=== PATIENT | male | born 1945 | race Caucasian/White ===

== ENCOUNTER 2022-05-11 12:34 | Emergency (ER) | payer MEDICARE ==
[~2022-05-11] VITALS: Ht 187.9 cm; Wt 104.0 kg
[2022-05-11] MEDS ORDERED: ACETAMINOPHEN 325 MG TABLET PO ONE (13:00)
[2022-05-11 13:02] LABS: BASOPHILS # (AUTO) 0.1 10^3/uL (0.0-0.1); BASOPHILS % (AUTO) 1 % (0-10); EOSINOPHILS # (AUTO) 0.1 10^3/uL (0.0-0.3); EOSINOPHILS % (AUTO) 1 % (0-10); HEMATOCRIT 42 % (40-54); HEMOGLOBIN 15.4 g/dL (13.3-17.7); LYMPHOCYTES # (AUTO) 0.6 10^3/uL (1.0-4.0); LYMPHOCYTES % (AUTO) 13 % (12-44); MEAN CORPUSCULAR HEMOGLOBIN 32 pg (25-34); MEAN CORPUSCULAR HGB CONC 36 g/dL (32-36); MEAN CORPUSCULAR VOLUME 87 fL (80-99); MEAN PLATELET VOLUME 9.3 fL (9.0-12.2); MONOCYTES # (AUTO) 0.7 10^3/uL (0.0-1.0); MONOCYTES % (AUTO) 15 % (0-12); NEUTROPHILS # (AUTO) 3.3 10^3/uL (1.8-7.8); NEUTROPHILS % (AUTO) 70 % (42-75); PLATELET COUNT 185 10^3/uL (130-400); WHITE BLOOD COUNT 4.7 10^3/uL (4.3-11.0)
[2022-05-11 13:31] LABS: BILIRUBIN,URINE NEGATIVE (NEGATIVE); CLARITY,URINE SL CLOUDY; COLOR,URINE YELLOW; GLUCOSE, URINE (UA) NEGATIVE (NEGATIVE); KETONES,URINE NEGATIVE (NEGATIVE); LEUKOCYTE ESTERASE ,URINE NEGATIVE (NEGATIVE); NITRITE,URINE NEGATIVE (NEGATIVE); PROTEIN,URINE NEGATIVE (NEGATIVE)
[2022-05-11 13:35] LABS: CARBON DIOXIDE 21 MMOL/L (21-32); CHLORIDE 102 MMOL/L (98-107); POTASSIUM 3.5 MMOL/L (3.6-5.0); SODIUM 139 MMOL/L (135-145)
[2022-05-11 13:36] LABS: ALANINE AMINOTRANSFERASE 37 U/L (0-55); ALBUMIN 4.7 GM/DL (3.2-4.5); ALKALINE PHOSPHATASE 82 U/L (40-136); BILIRUBIN,TOTAL 0.5 MG/DL (0.1-1.0); BUN/CREATININE RATIO 9; CALCIUM 9.4 MG/DL (8.5-10.1); CREATININE SERUM 1.62 MG/DL (0.60-1.30); GFR ESTIMATED 44; GLUCOSE 110 MG/DL (70-105); TOTAL PROTEIN 7.6 GM/DL (6.4-8.2)
[2022-05-11 13:44] LABS: BACTERIA,URINE NEGATIVE /HPF; SQUAMOUS EPITHELIAL CELL,UR RARE /HPF; WBC,URINE 0-2 /HPF
[2022-05-11] MEDS ORDERED: AZIT250T PO (14:28)
[2022-05-11] MEDS ORDERED: RT-ALBUINH INH (14:28)
[2022-05-11] MEDS ORDERED: PRD20T PO (14:28)
[2022-05-11 14:29] VITALS: BP 185/86
--- NOTE | 2022-05-11 14:29 | ED Cough/URI ---
General Chief Complaint: COVID19 Suspect/Confirmed Stated Complaint: GEN WEAKNESS/PAIN Nursing Triage Note: Patient presents to the ED with c/o body aches and cough. Reports symptoms started yesterday evening. Source: patient Exam Limitations: no limitations History of Present Illness Date Seen by Provider: May 11, 2022 Time Seen by Provider: 13:00 Initial Comments Patient is a 76-year-old male who presents with cough congestion, body aches chills and sweats starting yesterday evening. Known COVID exposure. Denies chest pain, shortness of breath or palpitations. No medications or therapies taken prior to ED arrival. No other symptoms or complaints. Timing/Duration: just prior to arrival, yesterday Severity/Quality: other Prior Episodes/Possible Cause: other Modifying Factors: Improves With Other Associated Symptoms: other Allergies and Home Medications Allergies Coded Allergies: morphine (Verified Allergy, Unknown, 05/11/22) Patient Home Medication List Home Medication List Reviewed: Yes Review of Systems Review of Systems Constitutional: see HPI EENTM: see HPI Respiratory: see HPI Cardiovascular: see HPI Gastrointestinal: see HPI Genitourinary: see HPI Musculoskeletal: see HPI Skin: see HPI Psychiatric/Neurological: See HPI Hematologic/Lymphatic: See HPI Immunological/Allergic: see HPI All Other Systems Reviewed Negative Unless Noted: Yes Past Oeyemns-Qzfsyp-Taesoc Hx Patient Social History Tobacco Use?: No Substance use?: No Alcohol Use?: No Pt feels they are or have been: No Immunizations Up To Date First/Initial COVID19 Vaccinat: YES Second COVID19 Vaccination Allan: YES COVID19 Vaccine Election Assistant: Moderna Past Medical History Surgery/Hospitalization HX: HTN; High Cholesterol; [place] x2; Cardiac stents Physical Exam Vital Signs - First Documented 05/11/22 12:38 Temp 38.6 Pulse 87 Resp 16 B/P (MAP) 190/92 (124) Pulse Ox 95 O2 Delivery Room Air Capillary Refill : Less Than 3 Seconds Height: '" Weight: lbs. oz. kg; 29.00 BMI Method: General Appearance: no apparent distress Eyes: Bilateral Eye Normal Inspection, Bilateral Eye PERRL, Bilateral Eye EOMI HEENT: PERRL/EOMI, normal ENT inspection, pharynx normal Respiratory: decreased breath sounds Cardiovascular: regular rate, rhythm, no edema Gastrointestinal: non tender, soft Extremities: non-tender Neurologic/Psychiatric: alert, normal mood/affect, oriented x 3 Skin: normal color Focused Exam Sepsis Stage: Ruled Out Progress/Results/Core Measures Suspected Sepsis SIRS Temperature: Pulse: 87 Respiratory Rate: 16 Laboratory Tests 05/11/22 12:43: White Blood Count 4.7 Blood Pressure 190 /92 Mean: 124 Laboratory Tests 05/11/22 12:43: Creatinine 1.62H, Platelet Count 185, Total Bilirubin 0.5 Results/Orders Lab Results Laboratory Tests Test 05/11/22 12:38 05/11/22 12:43 05/11/22 12:44 Range/Units Urine Color YELLOW Urine Clarity SL CLOUDY Urine pH 6.0 5-9 Urine Specific [place] 1.025 H 1.016-1.022 Urine Protein NEGATIVE NEGATIVE Urine Glucose (UA) NEGATIVE NEGATIVE Urine Ketones NEGATIVE NEGATIVE Urine Nitrite NEGATIVE NEGATIVE Urine Bilirubin NEGATIVE NEGATIVE Urine Urobilinogen 2.0 < = 1.0 MG/DL Urine Leukocyte Esterase NEGATIVE NEGATIVE Urine RBC (Auto) NEGATIVE NEGATIVE Urine RBC NONE /HPF Urine WBC 0-2 /HPF Urine Squamous Epithelial Cells RARE /HPF Urine Crystals NONE /LPF Urine Bacteria NEGATIVE /HPF Urine Casts PRESENT /LPF Urine Hyaline Casts 5-10 H /LPF Urine Mucus MODERATE H /LPF Urine Culture Indicated NO White Blood Count 4.7 4.3-11.0 10^3/uL Red Blood Count 4.85 4.30-5.52 10^6/uL Hemoglobin 15.4 13.3-17.7 g/dL Hematocrit 42 40-54 % Mean Corpuscular Volume 87 80-99 fL Mean Corpuscular Hemoglobin 32 25-34 pg Mean Corpuscular Hemoglobin Concent 36 32-36 g/dL Red Cell Distribution Width 12.0 10.0-14.5 % Platelet Count 185 130-400 10^3/uL Mean Platelet Volume 9.3 9.0-12.2 fL Immature Granulocyte % (Auto) 0 % Neutrophils (%) (Auto) 70 42-75 % Lymphocytes (%) (Auto) 13 12-44 % Monocytes (%) (Auto) 15 H 0-12 % Eosinophils (%) (Auto) 1 0-10 % Basophils (%) (Auto) 1 0-10 % Neutrophils # (Auto) 3.3 1.8-7.8 10^3/uL Lymphocytes # (Auto) 0.6 L 1.0-4.0 10^3/uL Monocytes # (Auto) 0.7 0.0-1.0 10^3/uL Eosinophils # (Auto) 0.1 0.0-0.3 10^3/uL Basophils # (Auto) 0.1 0.0-0.1 10^3/uL Immature Granulocyte # (Auto) 0.0 0.0-0.1 10^3/uL Sodium Level 139 135-145 MMOL/L Potassium Level 3.5 L 3.6-5.0 MMOL/L Chloride Level 102 98-107 MMOL/L Carbon Dioxide Level 21 21-32 MMOL/L Anion Gap 16 H 5-14 MMOL/L Blood Urea Nitrogen 14 7-18 MG/DL Creatinine 1.62 H 0.60-1.30 MG/DL Estimat Glomerular Filtration Rate 44 BUN/Creatinine Ratio 9 Glucose Level 110 H 70-105 MG/DL Calcium Level 9.4 8.5-10.1 MG/DL Corrected Calcium 8.5-10.1 MG/DL Total Bilirubin 0.5 0.1-1.0 MG/DL Aspartate Amino Transf (AST/SGOT) 32 5-34 U/L Alanine Aminotransferase (ALT/SGPT) 37 0-55 U/L Alkaline Phosphatase 82 40-136 U/L Troponin I < 0.30 <0.30 NG/ML Total Protein 7.6 6.4-8.2 GM/DL Albumin 4.7 H 3.2-4.5 GM/DL Influenza Type A (RT-PCR) Not Detected Not Detecte Influenza Type B (RT-PCR) Not Detected Not Detecte SARS-CoV-2 RNA (RT-PCR) Detected H Not Detecte My Orders Orders - BEN FORREST DO Ekg Tracing (05/11/22 12:49) Cbc With Automated Diff (05/11/22 12:49) Comprehensive Metabolic Panel (05/11/22 12:49) Covid 19 Inhouse Test (05/11/22 12:49) Influenza A And B By Pcr (05/11/22 12:49) Isolation Central Supply Req (05/11/22 12:49) Acetaminophen Tablet/Caplet (Tylenol T (05/11/22 13:00) Troponin I Fs (05/11/22 12:53) Urinalysis (05/11/22 13:26) Medications Given in ED Current Medications Medications Dose Ordered Sig/[place] Route Start Time Stop Time Status Last Admin Dose Admin Acetaminophen 650 mg ONCE ONCE PO 05/11/22 13:00 05/11/22 13:01 DC 05/11/22 13:02 650 MG Vital Signs/I&O 05/11/22 05/11/22 12:38 13:02 Temp 38.6 38.3 Pulse 87 Resp 16 B/P (MAP) 190/92 (124) Pulse Ox 95 O2 Delivery Room Air Capillary Refill : Less Than 3 Seconds Blood Pressure Mean: 124 Departure Communication (Admissions) Patient with viral symptoms with COVID-positive test. No respiratory compromise, nausea vomiting, or decreased p.o. intake. Patient is able to walk with steady gait prior to departure. Recommendations are for self quarantine, therapeutic and supportive care with watchful waiting and PCP follow-up. Return precautions reviewed. Patient verbalizes understanding agreement discharge i nstructions prior to departure Impression Primary Impression: COVID Disposition: HOME, SELF-CARE Condition: Stable Departure-Patient Inst. Decision time for Depature: 14:26 Referrals: BRENDEN RUVALCABA MD (PCP) Primary Care Physician Patient Instructions: COVID-19 (DC) Add. Discharge Instructions: You were evaluated in the emergency department for fever, cough, and body aches. Please increase fluids and take newly prescribed medications as directed and continue home self quarantine. Follow-up with your PCP in 5 to 7 days if symptoms persist. Return to the ED if new or worsening symptoms. All discharge instructions reviewed with patient and/or family. Voiced understanding. Scripts Albuterol Sulfate (Proventil Hfa) 6.7 Gm Hfa.aer.ad 2 PUFF INH Q6H for SHORTNESS OF BREATH, #1 EACH Prov: BEN FORREST DO 05/11/22 Azithromycin (Zithromax) 250 Mg Tablet 250 MG PO UD, #6 TAB TAKE 2 TABLETS TODAY, THEN TAKE 1 TABLET DAILY FOR 4 MORE DAYS Prov: BEN FORREST DO 05/11/22 Prednisone (Prednisone) 20 Mg Tab 40 MG PO DAILY, #6 TAB 0 Refills Prov: BEN FORREST DO 05/11/22 BEN FORREST DO May 11, 2022 14:29
== END 2022-05-11 14:31 | disposition home or self-care (01) ==
LOC: ER FS 12:36
DX: U07.1 COVID-19 (principal)
CPT/HCPCS: 36415; 80053; 81000; 84484; 85025; 87636